=== PATIENT | female | born 1990 | race Asian ===

== ENCOUNTER 2019-10-02 08:52 | Emergency (ER) | payer OTHER ==
[~2019-10-02] VITALS: Ht 147.3 cm; Wt 46.6 kg
[2019-10-02 09:03] VITALS: BP 115/76
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
[2019-10-02] MEDS ORDERED: KETOROLAC 30 MG/1 ML IM ONE (09:30)
--- NOTE | 2019-10-02 09:35 | NUR ---
PT TO RADIOLOGY.
--- NOTE | 2019-10-02 09:43 | NUR ---
PT BACK FROM RADIOLOGY.
[2019-10-02] MEDS ORDERED: KETOROLAC 30 MG/1 ML ONE (09:45)
--- NOTE | 2019-10-02 09:47 | NUR ---
PT MEDICATED PER ORDERS.
--- NOTE | 2019-10-02 10:19 | NUR ---
Patient/Caregiver given discharge instructions and they have confirmed that they understand the instructions. Patient ambulatory with steady gait.
== END 2019-10-02 10:44 | disposition home or self-care (01) ==
LOC: ED 10:28
DX: S39.012A Strain of muscle, fascia and tendon of lower back, initial encounter (principal); G89.11 Acute pain due to trauma; V49.09XA Driver injured in collision with other motor vehicles in nontraffic accident, initial encounter; Y93.89 Activity, other specified; Y92.488 Other paved roadways as the place of occurrence of the external cause; Y99.8 Other external cause status
CPT/HCPCS: 72110; 96372; 99283; J1885